=== PATIENT | female | born 1970 | race Caucasian/White ===

== ENCOUNTER 2016-04-10 10:10 | Emergency (ER) | payer OTHER, SELFPAY ==
[2016-04-10 10:37] VITALS: TEMP 98.3
[2016-04-10] MEDS ORDERED: GABAPENTIN 300 MG CAP PO ONE (10:40)
--- NOTE | 2016-04-10 11:50 | ED.PDOC ---
History of Present Illness - General Chief Complaint: General Stated Complaint: scalp pain Time Seen by Provider: 04/10/16 10:19 Source: patient Exam Limitations: no limitations - History of Present Illness Initial Comments: the patient is a 45-year-old female presenting due to scalp pain that was fairly severe 2 weeks ago for approximately a 24-hour period. The pain largely went away for a period of 2 weeks but came back yesterday. She reports it as a drawing, burning, crawling sensation. She originally thought that it was from a scorpion sting. She has not noted any true fevers. She has felt some significant malaise for the last few weeks. No focal neurological changes otherwise. Hot water seems to make the pain worse. No recent injuries. No change in medications recently. No confusion. She does have a mild headache related to it. Again no rash or skin changes. Timing/Duration: 24 hours Severity: moderate Improving Factors: nothing Worsening Factors: other - Hot water Associated Symptoms: headaches Allergies/Adverse Reactions: Allergies Ketorolac Tromethamine [From Toradol] Allergy (Verified 04/10/16 10:37) Penicillin G Allergy (Verified 04/10/16 10:37) Home Medications: Ambulatory Orders Gabapentin 300 mg PO Q8H #45 cap 04/10/16 Levothyroxine Sodium [Synthroid] 50 mcg PO DAILY 04/10/16 Valacyclovir HCl [Valtrex] 1 gm PO Q8H #21 tab 04/10/16 Review of Systems - Review of Systems Constitutional: States: malaise EENTM: States: no symptoms reported Respiratory: States: no symptoms reported Cardiology: States: no symptoms reported Gastrointestinal/Abdominal: States: no symptoms reported Genitourinary: States: no symptoms reported Musculoskeletal: States: no symptoms reported Skin: States: no symptoms reported Neurological: States: paresthesia Endocrine: States: no symptoms reported All other Systems: No Change from Baseline Past Medical History (General) - Patient Medical History Hx Seizures: No Hx Stroke: No Hx Dementia: No Hx Asthma: No Hx of COPD: No Hx Cardiac Disorders: No Hx Congestive Heart Failure: No Hx Pacemaker: No Hx Hypertension: No Hx Thyroid Disease: No Hx Diabetes: No Hx Gastroesophageal Reflux: No Hx Renal Disease: No Hx of HIV: No Hx Hepatitis C: Yes Hx MRSA: No - Vaccination History Hx Tetanus, Diphtheria Vaccination: No Hx Influenza Vaccination: Yes Hx Pneumococcal Vaccination: No Immunizations Up to Date: No - Social History Hx Tobacco Use: Yes Hx Alcohol Use: Yes - occ Hx Substance Use: No Hx Physical Abuse: No Hx Emotional Abuse: No Hx Suspected Abuse: No - Activities of Daily Living Hospice Agency (if applicable):: None - Female History Patient is a Female of Child Bearing Age (10 -59 yrs old): No Patient : No Family Medical History - Family History Mother Family History: No Known Physical Exam - Physical Exam General Appearance: Alert, Comfortable, No apparent distress Eye Exam: bilateral normal Ears, Nose, Throat: normal ENT inspection, normal pharynx Neck: full range of motion, supple, normal inspection Respiratory: chest non-tender, lungs clear, normal breath sounds, no respiratory distress, no accessory muscle use Cardiovascular/Chest: normal peripheral pulses, regular rate, rhythm, no edema Peripheral Pulses: radial,right: 2+, radial,left: 2+ Gastrointestinal/Abdominal: normal bowel sounds, non tender, soft Rectal Exam: deferred Back Exam: normal inspection Extremity: normal range of motion, non-tender, normal inspection, no pedal edema , normal capillary refill Neurologic: no motor/sensory deficits, alert, normal mood/affect, oriented x 3 Skin Exam: normal color Comments: Vital Signs - 24 hr 04/10/16 10:25 Temperature 98.3 F Pulse Rate [ 95 H pulse ox] Respiratory 18 Rate Blood Pressure 105/72 [Left Arm] O2 Sat by Pulse 95 Oximetry the scalp is tender to palpation over the area in question which does coincide with the greater occipital nerve on the left. There are no skin lesions. There is no erythema. There is no abscess. There is no hair loss. Progress - Progress Progress: 04/10/16 11:52 the patient is a 45-year-old female that appears to have occipital neuralgia in the distribution of the greater occipital nerve on the left. She will be placed on Neurontin as well as Valtrex. This is possibly shingles that has not yet broken the surface. Aleve can be used as well for discomfort. She does have a mild elevation of her liver function tests that does need to be followed up with her primary care doctor. ER warnings are given for any acute worsening. Lab work is reassuring. If she fails to improve with the above treatment, then evaluation for possible impingement of the greater occipital nerve may be worthwhile, and treatment varied accordingly. She needs to follow- up with her primary care doctor within 1 week. - Results/Orders Results/Orders: Laboratory Tests 04/10/16 10:48 WBC 8.3 RBC 5.27 Hgb 15.4 Hct 45.8 MCV 86.8 MCH 29.2 MCHC 33.6 RDW 13.5 Plt Count 232 MPV 9.6 Absolute Neuts (auto) 5.90 Absolute Lymphs (auto) 1.50 Absolute Monos (auto) 0.80 Absolute Eos (auto) 0.10 Absolute Basos (auto) 0.00 Neutrophils % 70.9 Lymphocytes % 17.7 L Monocytes % 10.2 H Eosinophils % 0.8 L Basophils % 0.4 Sodium 137 Potassium 3.7 Chloride 105 Carbon Dioxide 27 Anion Gap 8.7 L BUN 7 Creatinine 0.65 BUN/Creatinine Ratio 10.8 Random Glucose 100 Serum Osmolality 271.9 L Calcium 8.8 Magnesium 1.9 Total Bilirubin 0.8 AST 53 H ALT 68 H Alkaline Phosphatase 57 Creatine Kinase 82 CK-MB (CK-2) 1.6 CK-MB (CK-2) % Not Reportable Troponin I < 0.02 Serum Total Protein 7.7 Albumin 4.2 Globulin 3.5 Albumin/Globulin Ratio 1.2 Departure - Departure Clinical Impression: Occipital neuralgia of left side Disposition: Discharge to Home or Self Care Departure Forms: ED Discharge - Pt. Copy, Patient Portal Self Enrollment Instructions: DI for Neuralgia Diet: regular diet Activity: increase activity as tolerated Referrals: ARAM WILDER IV, [employer] [Primary Care Provider] - 1-2 Weeks Prescriptions: Gabapentin 300 mg PO Q8H #45 cap Valacyclovir HCl [Valtrex] 1 gm PO Q8H #21 tab Home Medications: Ambulatory Orders Gabapentin 300 mg PO Q8H #45 cap 04/10/16 Levothyroxine Sodium [Synthroid] 50 mcg PO DAILY 04/10/16 Valacyclovir HCl [Valtrex] 1 gm PO Q8H #21 tab 04/10/16 Additional Instructions: the patient is a 45-year-old female that appears to have occipital neuralgia in the distribution of the greater occipital nerve on the left. She will be placed on Neurontin as well as Valtrex. This is possibly shingles that has not yet broken the surface. Aleve can be used as well for discomfort. She does have a mild elevation of her liver function tests that does need to be followed up with her primary care doctor. ER warnings are given for any acute worsening. Lab work is reassuring. If she fails to improve with the above treatment, then evaluation for possible impingement of the greater occipital nerve may be worthwhile, and treatment varied accordingly. She needs to follow- up with her primary care doctor within 1 week. intermittent Aleve may help as well.
[2016-04-10 12:16] VITALS: BP 107/75; O2SAT 99
== END 2016-04-10 12:15 | disposition home or self-care (01) ==
LOC: ER 10:10
DX: M54.81 Occipital neuralgia (principal); Z88.6 Allergy status to analgesic agent; Z88.0 Allergy status to penicillin; Z86.19 Personal history of other infectious and parasitic diseases; Z87.891 Personal history of nicotine dependence

== ENCOUNTER → 2018-10-20 | Outpatient (CLI) | payer OTHER | LOC: LAB.O 17:08 | PROVIDERS: ATTEND Nurse Practitioner Family | DX: B18.2 Chronic viral hepatitis C (principal) ==

== ENCOUNTER → 2018-10-23 | Outpatient (CLI) | payer OTHER ==
--- NOTE | 2018-10-23 11:47 | CT ---
EXAM DESCRIPTION: CT ABDOMEN WITHOUT AND WITH CONTRAST CLINICAL HISTORY: CHRONIC VIRAL HEPATITIS COMPARISON: None Available. TECHNIQUE: CT of the abdomen is performed prior to and during IV bolus administration of 100 mL Isovue 300. FINDINGS: The lung bases are clear. The liver is normal in contour. The liver is upper limits of normal in size measuring 17.6 cm in craniocaudal dimension. No focal hepatic lesions seen. No evidence of periportal edema or peripancreatic fluid collection. Prior cholecystectomy. There is normal caliber and tapering of the CBD. Spleen, pancreas, adrenals, and kidneys are unremarkable. No bowel obstruction, the appendix is unremarkable. There is no lymphadenopathy, inflammation, or free fluid observed. IMPRESSION: Normal liver contour and enhancement. Prior cholecystectomy. This exam was performed according to our departmental dose-optimization program, which includes automated exposure control, adjustment of the mA and/or kV according to patient size and/or use of iterative reconstruction technique. Electronically signed by: Sp Amador DO 10/23/2018 11:45 AM CDT
== END ==
LOC: CT 08:57
PROVIDERS: ATTEND Nurse Practitioner Family
DX: B18.2 Chronic viral hepatitis C (principal); Z90.49 Acquired absence of other specified parts of digestive tract

== ENCOUNTER → 2018-11-12 | Outpatient (CLI) | payer OTHER ==
--- NOTE | 2018-11-12 14:25 | RAD ---
EXAM DESCRIPTION: Elbow,Left 2 x-ray Views CLINICAL HISTORY: PAIN IN LEFT ELBOW COMPARISON: None Available. TECHNIQUE: AP, Lateral x-ray views FINDINGS: Two-view left elbow shows no fracture or dislocation. No displacement of the distal humeral fat pads. Radial head and capitellum are normally aligned on both views. There is no bone lesion. There are no significant arthritic changes. There is no radiopaque foreign body. IMPRESSION: Negative for fracture. Electronically signed by: Sai Martel MD 11/12/2018 2:23 PM CDT
== END ==
LOC: RAD 14:01
PROVIDERS: ATTEND Nurse Practitioner Family
DX: M25.522 Pain in left elbow (principal)

== ENCOUNTER 2019-02-17 05:04 | Day surgery (SDC) | payer OTHER ==
[2019-02-17] MEDS ORDERED: LACTATED RINGERS 1,000 ML ONE (06:54)
[2019-02-17] MEDS ORDERED: LACTATED RINGERS 1,000 ML IVS ONE (07:20)
--- NOTE | 2019-02-17 08:15 | OP ---
DATE OF PROCEDURE: 02/17/19 PREOPERATIVE DIAGNOSIS: 1. Colorectal cancer screening. POSTOPERATIVE DIAGNOSIS: 1. Colonic polyps. PROCEDURE: 1. Colonoscopy with polypectomy. SURGEON: Garrison Saini MD ANESTHESIA: Monitored anesthesia care. ESTIMATED BLOOD LOSS: Less than 5 mL. COMPLICATIONS: None. PROCEDURE: The patient was placed in the left lateral decubitus position. A time-out was performed. A digital rectal exam was performed and was noted to be unremarkable. After deep sedation was achieved, the Olympus adult colonoscope was inserted through anus, into the rectum and advanced to the cecum under direct visualization. The cecum was identified by the terminal ileum, ileocecal valve and the appendiceal orifice. Photodocumentation of these locations was performed. The patients bowel preparation was good. The endoscope was then progressively withdrawn and the total colonic lumen evaluated. Retroflexion was performed in the rectum. The endoscope was then withdrawn and the procedure terminated. The patient tolerated the procedure well with no immediate complications. FINDINGS: 1. One 4 mm sessile polyp was found in the descending colon, this polyp was removed with a cold snare and retrieved for pathology. 2. One 8 mm semi-pedunculated polyp was found in the rectum. This polyp was removed with a cold snare and retrieved for pathology. 3. The remainder of the colonoscopy exam was otherwise unremarkable. IMPRESSION: 1. Colonic polyps, removed as above. RECOMMENDATIONS: 1. Okay to discharge home once the patient meets discharge criteria. 2. Resume prior diet. 3. Resume home medications. 4. Repeat colonoscopy in 5 to 10 years depending on the pathology results. 5. Followup in the GI clinic with Dr. Saini in 2 to 3 months. #[id number] [facility]
[2019-02-17 08:36] VITALS: TEMP 98.1; O2SAT 97
[2019-02-17] MEDS ORDERED: LIDOCAINE 1% 10 ML VIAL INJ ONE (10:00)
[2019-02-17] MEDS ORDERED: PROPOFOL 200 MG/20 ML VIAL IV ONE (10:00)
[2019-02-17 11:08] VITALS: BP 115/78
== END 2019-02-17 08:30 | disposition home or self-care (01) ==
LOC: AMB 05:04
PROVIDERS: ATTEND Internal Medicine Gastroenterology
DX: Z12.11 Encounter for screening for malignant neoplasm of colon (principal); D12.4 Benign neoplasm of descending colon; D12.8 Benign neoplasm of rectum; B18.2 Chronic viral hepatitis C; K59.04 Chronic idiopathic constipation; F17.210 Nicotine dependence, cigarettes, uncomplicated; Z88.1 Allergy status to other antibiotic agents; Z88.5 Allergy status to narcotic agent; Z88.0 Allergy status to penicillin; Z90.49 Acquired absence of other specified parts of digestive tract
CPT/HCPCS: 00812; 45385; J3490; J7120